=== PATIENT | male | born 1955 | race Caucasian/White ===

== ENCOUNTER 2022-06-19 07:25 | Emergency (ER) | payer BC ==
[~2022-06-19] VITALS: Ht 170.2 cm; Wt 90.7 kg
== END 2022-06-19 11:59 | disposition home or self-care (01) ==
LOC: ER 07:25
DX: R53.81 Other malaise (principal); Z88.0 Allergy status to penicillin; I10 Essential (primary) hypertension; F41.9 Anxiety disorder, unspecified; Z20.822 Contact with and (suspected) exposure to COVID-19